=== PATIENT | male | born 1990 | race Two or more races ===

== ENCOUNTER 2024-09-30 15:25 | Emergency (ER) | payer MEDICAID ==
[~2024-09-30] VITALS: Ht 188 cm; Wt 78.0 kg
[2024-09-30 15:31] VITALS: TEMP 98.1
[2024-09-30] MEDS ORDERED: METF-1211 PO ×2 (15:33→18:24)
[2024-09-30 15:59] LABS: BASOPHILS % (AUTO) 1.1 % (0.0-2.0); EOSINOPHILS % (AUTO) 3.1 % (1.0-6.0); HEMATOCRIT 44.4 % (41-53); HEMOGLOBIN 14.4 g/dL (13.5-17.5); LYMPHOCYTES # (AUTO) 2.4 K/uL (1.0-4.8); LYMPHOCYTES % (AUTO) 34.8 % (22.0-44.0); MEAN CORPUSCULAR HEMOGLOBIN 28.1 pg (26.0-34.0); MEAN CORPUSCULAR HGB CONC 32.5 G/dL (31.0-37.0); MEAN CORPUSCULAR VOLUME 86 fL (80-100); MONOCYTES # (AUTO) 0.6 K/uL (0.1-1.0); MONOCYTES % (AUTO) 8.3 % (2.0-9.0); NEUTROPHILS # (AUTO) 3.6 K/uL (1.8-7.7); NEUTROPHILS % (AUTO) 52.7 % (40.0-70.0); PLATELET COUNT (AUTO) 229 K/uL (150-450); RED BLOOD CELL COUNT(AUTO) 5.14 MIL/uL (4.50-5.90); WHITE BLOOD COUNT (AUTO) 6.8 K/uL (4.5-11.0)
[2024-09-30 16:03] LABS: ANION GAP 11 mmol/L (8-16); CARBON DIOXIDE 26 mmol/L (22-29); CHLORIDE 97 mmol/L (98-107); CREATININE 1.13 mg/dL (0.60-1.30); GLOMERULAR FILTR. RATE CALC > 60 mL/min (>60); GLUCOSE,RANDOM 336 mg/dL (70-110); POTASSIUM 4.6 mmol/L (3.5-5.1); SODIUM SERUM 134 mmol/L (136-145); UREA NITROGEN, BLOOD 15 mg/dL (7-18)
[2024-09-30 16:04] LABS: LIPASE 30 U/L (16-77)
[2024-09-30] MEDS: ONDANSETRON 4 MG TABLET PO ONE (18:09)
[2024-09-30] MEDS: INSULIN REGULAR, HUMAN 100 UNITS/ML SQ ONE (18:11)
[2024-09-30] MEDS: MetFORMIN HCL 500 MG ER TABLET PO ONE (18:21)
[2024-09-30 18:52] VITALS: BP 112/70; PULSE 74; RESP 18; O2SAT 100
[2024-09-30 23:11] LABS: GLUCOMETER DEV NAME(LOC) ERT.6; GLUCOSE,POINT OF CARE 250 MG/DL (70-110)
== END 2024-09-30 18:54 | disposition home or self-care (01) ==
LOC: EMS 15:25
DX: E11.65 Type 2 diabetes mellitus with hyperglycemia (principal); Z79.84 Long term (current) use of oral hypoglycemic drugs
CPT/HCPCS: 99283; 80048; 82009; 82962; 83690; 85025; 96372; J1815; Q0162